=== PATIENT | female | born 1985 | race Caucasian/White ===

== ENCOUNTER 2017-02-16 01:26 | Emergency (ER) | payer OTHER ==
[2017-02-16 01:51] VITALS: BP 142/73; PULSE 75; TEMP 97.8; BMI 31.1
--- NOTE | 2017-02-16 01:56 | PDOC ---
History of Present Illness - General Chief Complaint: Pain, Acute Stated Complaint: LWR BACK FLANK PAIN Time Seen by Provider: 02/16/17 01:55 History Source: Patient Exam Limitations: No Limitations - History of Present Illness Travel History: No Initial Comments: 02/16/17 02:36 31-year-old female presents to the emergency department complaining of right- sided flank pain 4 days. Pain is described as 9/10 sharp intermittent discomfort radiating to the right groin with burning upon urination but denies urinary frequency/hesitancy/urgency/hematuria, fever, chills, nausea/vomiting, chest pain, shortness of breath, abdominal pains. Patient has no history of renal colic/pyelonephritis. LMP x2 weeks ago Timing/Duration: reports: intermittent Quality: reports: mild Abdominal Pain Onset Location: reports: flank (right) Pain Radiation: reports: groin (right), other Past History - Travel Traveled outside of the country in the last 30 days: No Close contact w/someone who was outside of country & ill: No - Past Medical History Allergies/Adverse Reactions: Allergies Allergy/AdvReac Type Severity Reaction Status Date / Time Penicillins Allergy Severe Difficulty Verified 02/16/17 01:46 Breathing Home Medications: Ambulatory Orders NK [No Known Home Medication] 06/13/15 Kidney Stones: Yes Suicide Attempt (Hx): No - Surgical History Abdominal Surgery: Yes Appendectomy: Yes Cholecystectomy: Yes - Immunization History Immunization Up to Date: Yes - Psycho/Social/Smoking Cessation Hx Anxiety: No Suicidal Ideation: No Smoking Status: No Smoking History: Never smoked Have you smoked in the past 12 months: No Number of Cigarettes Smoked Daily: 0 Hx Alcohol Use: No Drug/Substance Use Hx: No Substance Use Type: None Hx Substance Use Treatment: No Review of Systems - Review of Systems Able to Perform ROS?: Yes Comments:: 02/16/17 02:35 CONSTITUTIONAL: Absent: fever, chills, diaphoresis, generalized weakness, malaise, loss of appetite HEENT: Absent: rhinorrhea, nasal congestion, throat pain, throat swelling, difficulty swallowing, mouth swelling, ear pain, eye pain, visual Changes CARDIOVASCULAR: Absent: chest pain, loss of consciousness, palpitations, irregular heart rate, peripheral edema RESPIRATORY: Absent: cough, shortness of breath, dyspnea with exertion, orthopnea, wheezing, stridor, hemoptysis GASTROINTESTINAL: Absent: abdominal pain, abdominal distension, nausea, vomiting, diarrhea, constipation, melena, hematochezia GENITOURINARY: +right flank pain Absent: dysuria, frequency, urgency, hesitancy, hematuria, , genital pain MUSCULOSKELETAL: Absent: myalgia, arthralgia, joint swelling SKIN: Absent: rash, itching, pallor HEMATOLOGIC/IMMUNOLOGIC: Absent: easy bleeding, easy bruising, lymphadenopathy, frequent infections ENDOCRINE: Absent: unexplained weight gain, unexplained weight loss, heat intolerance, cold intolerance NEUROLOGIC: Absent: headache, focal weakness or paresthesias, dizziness, unsteady gait, seizure, mental status changes, bladder or bowel incontinence PSYCHIATRIC: Absent: anxiety, depression, suicidal or homicidal ideation, hallucinations. Is the patient limited Bhutanese proficient: No *Physical Exam - Vital Signs Last Vital Signs Temp Pulse Resp BP Pulse Ox 97.8 F 75 18 142/73 100 02/16/17 01:47 02/16/17 01:47 02/16/17 01:47 02/16/17 01:47 02/16/17 01:47 - Physical Exam Comments: 02/16/17 02:35 GENERAL: Well developed, well nourished. Awake and alert. No acute distress. HEENT: Normocephalic, atraumatic. PERRLA, EOMI. No conjunctival pallor. Sclera are non- icteric. Moist mucous membranes. Oropharynx is clear. NECK: Supple. Full ROM. No JVD. Carotid pulses 2+ and symmetric, without bruits. No thyromegaly. No lymphadenopathy. CARDIOVASCULAR: Regular rate and rhythm. No murmurs, rubs, or gallops. Distal pulses are 2+ and symmetric. PULMONARY: No evidence of respiratory distress. Lungs clear to auscultation bilaterally. No wheezing, rales or rhonchi. ABDOMINAL: Soft. Non-tender. Non-distended. No rebound or guarding. No organomegaly. Normoactive bowel sounds. MUSCULOSKELETAL +right CVAT Normal range of motion at all joints. No bony deformities or tenderness. EXTREMITIES: No cyanosis. No clubbing. No edema. No calf tenderness. SKIN: Warm and dry. Normal capillary refill. No rashes. No jaundice. NEUROLOGICAL: Alert, awake, appropriate. Cranial nerves 2-12 intact. No deficits to light touch and temperature in face, upper extremities and lower extremities. No motor deficits in the in face, upper extremities and lower extremities. Normoreflexic in the upper and lower extremities. Normal speech. Toes are down- going bilaterally. Gait is normal without ataxia. PSYCHIATRIC: Cooperative. Good eye contact. Appropriate mood and affect. Heart Score/ECG Review - History History: Slightly suspicious - Electrocardiogram EKG: Normal - Age Age: >/= 65 - Risk Factors Based on the list above the patient has:: No risk factors known - Troponin Troponin: </= normal limit - Score Heart Score - Total: 2 Progress Note - Progress Note Progress Note: Spiral CAT scans/renal colic Impression: Mild right hydronephrosis and perinephric inflammation, without obstructing stones seen which may indicate that the patient has recently passed a stone. Punctate intraparenchymal *DC/Admit/Observation/Transfer Diagnosis at time of Disposition: Renal colic on right side UTI (urinary tract infection) Qualifiers: Urinary tract infection type: acute cystitis Hematuria presence: without hematuria Qualified Code(s): N30.00 - Acute cystitis without hematuria - Discharge Dispostion Disposition: HOME Condition at time of disposition: Stable Admit: No - Referrals Referrals: Edwin Nugent MD [Primary Care Provider] - Dakota Horan MD., MD [Staff Physician] - - Patient Instructions Printed Discharge Instructions: DI for Kidney Stones, Urinary Tract Infection Additional Instructions: Rest Increase fluids Follow up with your physician and the Urologist listed on your discharge Tylenol/Motrin as needed for pain Return to the ER for severe/persistent/worsening symptoms Your renal CAT scan is only a preliminary report. It shows that you have mild right hydronephrosis and perinephric inflammation without an obstructing stone seen which may indicate that the you have recently passed a stone.
[2017-02-16 02:10] LABS: URINE APPEARANCE CLEAR; URINE BILIRUBIN NEGATIVE (NEGATIVE); URINE COLOR STRAW; URINE GLUCOSE (UA) NEGATIVE (NEGATIVE); URINE KETONE NEGATIVE (NEGATIVE); URINE NITRITE NEGATIVE (NEGATIVE); URINE UROBILINOGEN NEGATIVE E.U./dl (0.2-1.0)
[2017-02-16 02:11] LABS: URINE BLOOD 1+ (NEGATIVE); URINE LEUK ESTERASE 2+ (NEGATIVE); URINE PROTEIN 2+ (NEGATIVE)
[2017-02-16 02:20] LABS: URINE MUCUS RARE; URINE RBC 19 /hpf (0-3); URINE WBC 186 /hpf (3-5)
[2017-02-16] MEDS ORDERED: KETOROLAC TROMETHAMINE 60 MG/2 ML VIAL IM ONE (02:23)
[2017-02-16] MEDS ORDERED: KETOROLAC TROMETHAMINE 60 MG/2 ML VIAL ONE (02:39)
== END 2017-02-16 05:11 | disposition home or self-care (01) ==
LOC: JER 01:26
PROC: 3E0233Z Introduction of Anti-inflammatory into Muscle, Percutaneous Approach (ICD-10-PCS; principal; 2017-02-16)
DX: N23 Unspecified renal colic (principal); N30.00 Acute cystitis without hematuria
CPT/HCPCS: 74176; 81003; 81015; 84703; 96372; 99281-25

== ENCOUNTER 2017-02-17 19:53 | Emergency (ER) | payer OTHER ==
[2017-02-17 20:28] VITALS: BMI 30.2
[2017-02-17] MEDS ORDERED: morphine CARPU-JECT 4 MG/1 ML DISP.SYRIN IVPUSH ONE (20:42)
[2017-02-17] MEDS ORDERED: ONDANSETRON 4 MG/2 ML VIAL IVPB ONE (20:42)
[2017-02-17] MEDS ORDERED: SODIUM CHLORIDE 1,000 ML IV STA ×2 (20:42→23:34)
--- NOTE | 2017-02-17 21:03 | PDOC ---
History of Present Illness - General Chief Complaint: SIRS, Suspected/Possible Stated Complaint: UTI/KIDNEY PAIN Time Seen by Provider: 02/17/17 20:35 History Source: Patient Exam Limitations: No Limitations - History of Present Illness Initial Comments: 02/17/17 21:01 31yo Female patient presents to ED c/o h/a, fever, vomiting, diarrhea, chills, and nausea which has been ongoing since earlier today. Patient states she was seen yesterday and diagnosed with Renal Colic, prescribed Bactrim and Toradol po. Patient reports fever 103.0 w/ back pain. Denies any other complaints at this time. Timing/Duration: getting worse, changing over time Severity: mild Modifying Factors: improves with: medication Associated Symptoms: reports: fever/chills, loss of appetite, nausea/vomiting. denies: denies symptoms, chest pain, cough, diaphoresis, headaches, malaise, rash, seizure, shortness of breath, syncope, weakness, other Past History - Travel Traveled outside of the country in the last 30 days: No Close contact w/someone who was outside of country & ill: No - Past Medical History Allergies/Adverse Reactions: Allergies Allergy/AdvReac Type Severity Reaction Status Date / Time Penicillins Allergy Severe Difficulty Verified 02/17/17 20:20 Breathing Home Medications: Ambulatory Orders Ketorolac Tromethamine [Toradol] 10 mg PO TID #15 tablet 02/16/17 Sulfamethoxazole/Trimethoprim [Bactrim Ds -] 1 tab PO BID #14 tablet 02/16/17 Cephalexin Monohydrate [Keflex -] 500 mg PO Q8H #30 capsule 02/18/17 Ondansetron [Zofran Odt -] 4 mg SL Q6H PRN #20 od.tablet 02/18/17 Oxycodone HCl/Acetaminophen [Percocet 10-325 mg Tablet] 1 each PO Q6H PRN #24 tablet MDD 4 tabs 02/18/17 Kidney Stones: Yes Suicide Attempt (Hx): No - Surgical History Abdominal Surgery: Yes Appendectomy: Yes Cholecystectomy: Yes - Immunization History Immunization Up to Date: Yes - Psycho/Social/Smoking Cessation Hx Anxiety: No Suicidal Ideation: No Smoking Status: No Smoking History: Never smoked Have you smoked in the past 12 months: No Number of Cigarettes Smoked Daily: 0 Information on smoking cessation initiated: No Hx Alcohol Use: No Drug/Substance Use Hx: No Substance Use Type: None Hx Substance Use Treatment: No Review of Systems - Review of Systems Able to Perform ROS?: Yes Is the patient limited Tristanian proficient: No Constitutional: Yes: Chills, Fever, Weakness Respiratory: No: Cough, Shortness of Breath, Stridor, Wheezing Cardiac (ROS): No: Chest Pain, Edema, Lightheadedness, Palpitations, Syncope, Chest Tightness ABD/GI: Yes: Diarrhea, Nausea. No: Constipated, Poor Appetite, Poor Fluid Intake, Rectal Bleeding, Vomiting, Indigestion, Abdominal cramping : No: Burning, Dysuria, Flank Pain, Hematuria Musculoskeletal: Yes: Back Pain Integumentary: No: Bruising, Erythema, Pruritus, Rash Neurological: Yes: Headache, Dizziness. No: Numbness, Seizure, Tremors, Weakness, Unsteady Gait, Ataxia All Other Systems: Reviewed and Negative *Physical Exam - Vital Signs Last Vital Signs Temp Pulse Resp BP Pulse Ox 102.9 F H 130 H 20 127/89 98 02/17/17 20:20 02/17/17 20:20 02/17/17 20:20 02/17/17 20:20 02/17/17 20:20 - Physical Exam General Appearance: Yes: Nourished, Appropriately Dressed, Mild Distress HEENT: positive: EOMI, JEANETTE, Normal ENT Inspection, Normal Voice, Symmetrical, TMs Normal, Pharynx Normal. negative: Pharyngeal Erythema, Tonsillar Exudate, Tonsillar Erythema, Nasal Congestion, Rhinorrhea, Sinus Tenderness, TM Bulging, TM Dull, TM Erythema Neck: positive: Trachea midline, Supple. negative: Lymphadenopathy (R), Lymphadenopathy (L) Respiratory/Chest: positive: Lungs Clear, Normal Breath Sounds. negative: Respiratory Distress, Accessory Muscle Use, Labored Respiration, Stridor, Wheezing Cardiovascular: positive: Regular Rhythm, Regular Rate Gastrointestinal/Abdominal: positive: Normal Bowel Sounds, Soft. negative: Distended, Guarding, Rebound, Tenderness Musculoskeletal: positive: Normal Inspection. negative: CVA Tenderness Extremity: positive: Normal Capillary Refill, Normal Inspection, Normal Range of Motion. negative: Pedal Edema, Swelling Integumentary: positive: Normal Color, Dry, Warm. negative: Pale, Cold, Clammy , Hives, Rash, Swelling Neurologic: positive: housing manager II-XII NML intact, Fully Oriented, Alert, Normal Mood/ Affect, Normal Response, Motor Strength 03/07 ED Treatment Course - LABORATORY CBC & Chemistry Diagram: 02/17/17 21:10 02/17/17 21:10 *DC/Admit/Observation/Transfer Diagnosis at time of Disposition: Pyelonephritis - Discharge Dispostion Disposition: HOME Condition at time of disposition: Improved Admit: No - Prescriptions Prescriptions: Cephalexin Monohydrate [Keflex -] 500 mg PO Q8H #30 capsule Oxycodone HCl/Acetaminophen [Percocet 10-325 mg Tablet] 1 each PO Q6H PRN #24 tablet MDD 4 tabs PRN Reason: Severe Pain Ondansetron [Zofran Odt -] 4 mg SL Q6H PRN #20 od.tablet PRN Reason: Nausea - Patient Instructions Printed Discharge Instructions: DI for Kidney Infection Additional Instructions: FOLLOW UP WITH DR. ANGELO THIS WEEK. CALL TO SCHEDULE APPOINTMENT. TAKE MEDICATIONS PRESCRIBED. IF SYMPTOMS WORSEN DISCUSSED RETURN FOR FURTHER EVALUATION. DO NOT DRIVE, DRINK ALCOHOL, OR OPERATE HEAVY MACHINERY WHILE TAKING PERCOCET. DRINK PLENTY WATER AND GET REST. KEFLEX EVERY 8 HOURS FOR INFECTION- ANTIBIOTICS ZOFRAN EVERY 6 HOURS NEEDED FOR NAUSEA PERCOCET EVERY 6 HOURS NEEDED FOR PAIN. DO NOT TAKE EXTRA STRENGTH TYLENOL WITH THIS MEDICATION. YOU MAY USE 1 TABLET OF REGULAR STRENGTH TYLENOL 325 MG WITH EACH DOSE. STOP BACTRIM. YOU MAY CONTINUE TO USE TORADOL NEEDED FOR MILD PAIN. Print Language: BRITISH - Post Discharge Activity Work/School Note: Back to Work
[2017-02-17] MEDS ORDERED: morphine CARPU-JECT 4 MG/1 ML DISP.SYRIN ONE (21:06)
[2017-02-17] MEDS ORDERED: ONDANSETRON 4 MG/2 ML VIAL ONE (21:06)
[2017-02-17] MEDS ORDERED: ACETAMINOPHEN 1000 MG/100 ML VIAL (NON FORMULARY) IVPB ONE (21:49)
[2017-02-17] MEDS ORDERED: ACETAMINOPHEN INJECTION 100 ML IVPB ONE (21:50)
[2017-02-17 21:54] LABS: MCH 28.6 pg (25.7-33.7); MCHC 33.3 g/dl (32.0-36.0); MEAN CELL VOLUME 85.6 fl (80-96); MEAN PLT VOLUME 9.3 fl (7.5-11.1); PLATELET COUNT 171 K/MM3 (134-434); WHITE BLOOD COUNT 9.4 K/mm3 (4.0-10.0)
[2017-02-17 21:55] LABS: BASOPHIL 0.1 % (0-2.0); NEUTROPHILS 86.5 % (42.8-82.8)
[2017-02-17 22:02] LABS: ALBUMIN 3.4 g/dl (3.4-5.0); AMYLASE 35 U/L (25-115); ANION GAP 12 (8-16); BILIRUBIN,TOTAL 0.4 mg/dL (0.2-1.0); CALCIUM 7.7 mg/dL (8.5-10.1); CO2 28 mmol/L (21-32); COCKROFT - GAULT 114.5885; CREATININE 0.8 mg/dL (0.55-1.02); GLUCOSE,RANDOM 161 mg/dL (74-106); SGOT/AST 89 U/L (15-37); SGPT/ALT 97 U/L (12-78); TOT PROT 7.5 g/dl (6.4-8.2)
[2017-02-17 22:03] LABS: ALK PHOS 160 U/L (45-117)
[2017-02-17 23:16] LABS: URINE APPEARANCE CLEAR; URINE COLOR YELLOW; URINE GLUCOSE (UA) NEGATIVE (NEGATIVE)
[2017-02-17 23:17] LABS: URINE BILIRUBIN NEGATIVE (NEGATIVE); URINE BLOOD 2+ (NEGATIVE); URINE KETONE 2+ (NEGATIVE); URINE LEUK ESTERASE 1+ (NEGATIVE); URINE NITRITE NEGATIVE (NEGATIVE); URINE PROTEIN 2+ (NEGATIVE); URINE RBC 164 /hpf (0-3); URINE UROBILINOGEN 2.0 E.U/dl E.U./dl (0.2-1.0)
[2017-02-17 23:18] LABS: URINE BACTERIA MODERATE /hpf (NONE SEEN); URINE MUCUS FEW; URINE WBC 16 /hpf (3-5)
[2017-02-17] MEDS ORDERED: CEFTRIAXONE 1 GM in DEXTROSE 5%-WATER - 50 ML IVPB ONE (23:34)
[2017-02-17] MEDS ORDERED: cefTRIAXone SODIUM 1 GM VIAL ONE (23:56)
[2017-02-18] MEDS ORDERED: SODIUM CHLORIDE 1,000 ML IV STA (01:44)
[2017-02-18] MEDS ORDERED: METOCLOPRAMIDE HCL INJECTION 10 MG/2 ML VIAL IVPB ONE (01:44)
[2017-02-18] MEDS ORDERED: METOCLOPRAMIDE HCL INJECTION 10 MG/2 ML VIAL ONE (01:55)
[2017-02-18 02:35] VITALS: TEMP 98.4
[2017-02-18 03:53] VITALS: BP 127/81; PULSE 93
== END 2017-02-18 03:54 | disposition home or self-care (01) ==
LOC: JER 19:53
PROC: 3E0337Z Introduction of Electrolytic and Water Balance Substance into Peripheral Vein, Percutaneous Approach (ICD-10-PCS; principal; 2017-02-17)
PROC: 3E03329 Introduction of Other Anti-infective into Peripheral Vein, Percutaneous Approach (ICD-10-PCS; 2017-02-17)
PROC: 3E033NZ Introduction of Analgesics, Hypnotics, Sedatives into Peripheral Vein, Percutaneous Approach (ICD-10-PCS; 2017-02-17)
PROC: 3E033GC Introduction of Other Therapeutic Substance into Peripheral Vein, Percutaneous Approach (ICD-10-PCS; 2017-02-17)
DX: N10 Acute pyelonephritis (principal)
CPT/HCPCS: 36415; 74177-TC; 80053; 81003; 81015; 82150; 83605; 83690; 84703; 85025; 87086; 87804; 99283-25

== ENCOUNTER 2017-03-05 12:19 | Day surgery (SDC) | payer OTHER ==
[2017-03-04 12:55] VITALS: BMI 32.1
[2017-03-05] MEDS ORDERED: PROPOFOL 20 ML ONE (13:39)
[2017-03-05] MEDS ORDERED: MIDAZOLAM HCL 2 MG/2 ML SINGLE DOSE VIAL ONE (13:39)
[2017-03-05] MEDS ORDERED: SUCCINYLCHOLINE CHLORIDE 200 MG/10 ML VIAL ONE (13:39)
[2017-03-05] MEDS ORDERED: LEVOFLOXACIN 500 MG PREMIX BAG IVPB ONE (14:11)
[2017-03-05] MEDS ORDERED: IOHEXOL 300 MG/ML INFUS..BTL IV ONE (14:30)
--- NOTE | 2017-03-05 14:54 | OP ---
Operative Note - Note: Operative Date: 03/05/17 Pre-Operative Diagnosis: Right hydronephrosis Operation: Cysto retro, Ureteral dilatation and stent placement Post-Operative Diagnosis: Same as Pre-op Anesthesia: General Drains & Tubes with Location: 22 F 6mm stent right Operative Report Dictated: Yes
[2017-03-05] MEDS ORDERED: ONDANSETRON 4 MG/2 ML VIAL IVPUSH PRN (14:57)
[2017-03-05] MEDS ORDERED: oxyCODONE HCL 5 MG TABLET PO PRN (14:57)
[2017-03-05] MEDS ORDERED: LACTATED RINGERS SOLUTION 1,000 ML IV SCH (15:00)
[2017-03-05 16:17] VITALS: TEMP 98.5
[2017-03-05] MEDS ORDERED: oxyCODONE HCL 5 MG TABLET ONE (16:17)
[2017-03-05 17:15] VITALS: BP 127/84; PULSE 78
--- NOTE | 2017-03-06 16:51 | OP ---
DATE OF OPERATION: 03/05/2017 SURGEON: Devora Brewer MD ANESTHESIA: General. PREOPERATIVE DIAGNOSES: Right hydronephrosis, obstructive uropathy. POSTOPERATIVE DIAGNOSES: Right hydronephrosis, obstructive uropathy. PROCEDURE: Cystoscopy, right retrograde ureteral dilatation and stent placement. FINDINGS: bladder found to be markedly inflamed with areas of cystitic changes. Right ureteral orifice was found to be quite edematous. Right retrograde showed hydronephrosis right to the point of right UV junction. DESCRIPTION OF PROCEDURE: Patient in lithotomy position under anesthesia was prepped and draped in the usual manner. Using 22 scope, cystoscopy performed with considerable difficulty. Right ureter was catheterized. Access catheter was used. Retrograde performed, and findings were noted above. Then, a stent was placed without difficulty. Patient tolerated the procedure well, left the operating room in satisfactory condition. DEVORA BREWER M.D. [id number]
== END 2017-03-05 17:05 | disposition home or self-care (01) ==
LOC: JASU-SURG 12:19
PROVIDERS: ATTEND Urology
PROC: 0T768DZ Dilation of Right Ureter with Intraluminal Device, Via Natural or Artificial Opening Endoscopic (ICD-10-PCS; principal; 2017-03-05 13:30)
PROC: 0T768DZ Dilation of Right Ureter with Intraluminal Device, Via Natural or Artificial Opening Endoscopic (ICD-10-PCS; 2017-03-05 13:30)
DX: N13.30 Unspecified hydronephrosis (principal)
CPT/HCPCS: 76000-TC; 84703; 94760

== ENCOUNTER 2018-03-25 20:44 | Emergency (ER) | payer OTHER ==
--- NOTE | 2018-03-25 20:56 | PDOC ---
Rapid Medical Evaluation Chief Complaint: Chest Pain Time Seen by Provider: 03/25/18 20:46 Medical Evaluation: Allergies Allergy/AdvReac Type Severity Reaction Status Date / Time Penicillins Allergy Severe Difficulty Verified 10/11/17 19:29 Breathing 03/25/18 20:46 sent by Kenroy RUGGIERO urgent for midsternal chest pain and palpitations, SOb, dizziness x 2 days. History of " pre diabetes" currently on metformin PE: Patient alert ox3 A:chest pain P; cbc cmp mg cardiac d-dimer chest xray EKG patient to the ER for further management of care.
[2018-03-25 21:03] VITALS: BMI 31.9
[2018-03-25 21:46] LABS: BASO % 0.6 % (0-2.0); EOS % 2.3 % (0-4.5); HEMATOCRIT 39.7 % (32.4-45.2); HEMOGLOBIN 13.1 GM/dL (10.7-15.3); LYMPH % 29.2 % (8-40); MCH 28.8 pg (25.7-33.7); MEAN CELL VOLUME 87.3 fl (80-96); MEAN PLT VOLUME 9.5 fl (7.5-11.1); MONO % 4.8 % (3.8-10.2); NEUT % 63.1 % (42.8-82.8); PLATELET COUNT 239 K/MM3 (134-434); RBC 4.54 M/mm3 (3.60-5.2); RDW 14.1 % (11.6-15.6); WHITE BLOOD COUNT 8.7 K/mm3 (4.0-10.0)
[2018-03-25 21:54] LABS: INR 0.97 (0.82-1.09)
--- NOTE | 2018-03-25 22:11 | PDOC ---
History of Present Illness - General Chief Complaint: Chest Pain Stated Complaint: S.O.B/ CHEST PAIN Time Seen by Provider: 03/25/18 20:46 - History of Present Illness Initial Comments: Patient is a 33 year old female, with a significant past medical history of PCOS , renal stones, who presents to the emergency department complaining of 4 days of intermittent chest tightness, dizziness and fatigue. Pt states that 4 days ago she noted the onset of substernal chest tightness with no radiation, worsened by talking and exercise and relieved by rest, which has been more persistent over the last two days. Pt also states she when she has this chest pain, she also endorses a frontal TERESA, nausea and SOB. She also endorses persistent decreased exercise tolerance, feeling SOB after walking down the [place]. She also endorses BL flank "burning" , similar to prior R flank pain when she had a renal stone. Pt denies any hx of trauma, rashes to anterior chest, hx of cardiac conditions. No cardiac hx. Pt seen in ED two years ago for similar symptoms, all work-up was negative. No recent travel, immobilization or sick contacts. The patient denies Denies fever, chills, vomiting, diarrhea and constipation. Denies dysuria, frequency, urgency and hematuria. Allergies: None Past surgical history: GB removal, C-sections x2 Social History: Denies all toxic habits PMD: None currently 03/25/18 22:10 Past History - Past Medical History Allergies/Adverse Reactions: Allergies Allergy/AdvReac Type Severity Reaction Status Date / Time Penicillins Allergy Severe Difficulty Verified 03/25/18 21:03 Breathing Home Medications: Ambulatory Orders Ibuprofen [Motrin -] 600 mg PO QID #28 tablet 10/11/17 Anemia: No Asthma: No Cancer: No Cardiac Disorders: No CVA: No COPD: No CHF: No Dementia: No Diabetes: Yes (gestational) GI Disorders: No Disorders: Yes (frequent UTI) HTN: No Hypercholesterolemia: No Kidney Stones: Yes Liver Disease: No Seizures: No Thyroid Disease: No - Surgical History Abdominal Surgery: Yes Appendectomy: Yes Cholecystectomy: Yes - Immunization History Immunization Up to Date: Yes - Suicide/Smoking/Psychosocial Hx Smoking Status: No Smoking History: Never smoked Have you smoked in the past 12 months: No Number of Cigarettes Smoked Daily: 0 Information on smoking cessation initiated: No Hx Alcohol Use: No Drug/Substance Use Hx: No Substance Use Type: None Hx Substance Use Treatment: No Review of Systems - Review of Systems Comments:: GENERAL/CONSTITUTIONAL: +weakness, No fever or chills. HEAD, EYES, EARS, NOSE AND THROAT: No change in vision. No ear pain or discharge. No sore throat. CARDIOVASCULAR: +Chest tightness, sob, palpitations RESPIRATORY: No cough, wheezing, or hemoptysis. GASTROINTESTINAL: +nausea. No vomiting, diarrhea or constipation. GENITOURINARY: No dysuria, frequency, or change in urination. MUSCULOSKELETAL: + BL back pain, No joint or muscle swelling or pain. No neck SKIN: No rash NEUROLOGIC: +TERESA; No vertigo, loss of consciousness, or change in strength/ sensation. ENDOCRINE: No increased thirst. No abnormal weight change HEMATOLOGIC/LYMPHATIC: No anemia, easy bleeding, or history of blood clots. ALLERGIC/IMMUNOLOGIC: No hives or skin allergy. 03/25/18 22:10 *Physical Exam - Vital Signs Last Vital Signs Temp Pulse Resp BP Pulse Ox 98.2 F 93 H 16 153/111 100 03/25/18 20:56 03/25/18 20:56 03/25/18 20:56 03/25/18 20:56 03/25/18 20:56 - Physical Exam Comments: GENERAL: Awake, alert, and fully oriented, in no acute distress HEAD: No signs of trauma, normocephalic, atraumatic EYES: PERRLA, EOMI, sclera anicteric, conjunctiva clear ENT: Auricles normal inspection, hearing grossly normal, nares patent, oropharynx clear without exudates. Moist mucosa NECK: Normal ROM, supple, no lymphadenopathy, JVD, or masses LUNGS: No distress, speaks full sentences. Decreased air entry at bases. HEART: Regular rate and rhythm, normal S1 and S2, no murmurs, rubs or gallops, peripheral pulses normal and equal bilaterally. No anterior chest pain on palpation. ABDOMEN: globular, Soft, nontender, normoactive bowel sounds. No guarding, no rebound. No masses. R-sided CVA tenderness. EXTREMITIES : Normal inspection, Normal range of motion, no edema. No clubbing or cyanosis. NEUROLOGICAL: Cranial nerves II through XII grossly intact. Normal speech, normal gait, no focal sensorimotor deficits SKIN: Warm, Dry, normal turgor, no rashes or lesions noted 03/25/18 22:11 ED Treatment Course - LABORATORY CBC & Chemistry Diagram: 03/25/18 21:20 03/26/18 02:22 - ADDITIONAL ORDERS Additional order review: Laboratory Results 03/25/18 21:22 PT with INR 11.00 INR 0.97 Medical Decision Making - Medical Decision Making Patient is a 33 year old female, with a significant past medical history of PCOS , renal stones, who presents to the emergency department complaining of 4 days of intermittent chest tightness, dizziness and fatigue. DDX ACS, PE, pleurisy, GERD, costochondritis, PUD, esophageal spasm, anxiety attack. Plan: -CBC, CMP, trops, coags, lactate, urine-preg - CXR, EKG - motrin for TERESA - UA 03/25/18 22:21 DISCHARGE The patient has gotten significant relief of symptoms with ED medications. Workup is not concerning for emergency-level pathology at this time. The patient is appropriate for discharge with close outpatient follow up. They are comfortable with this plan and will follow up with their PCP in 1-3 days. Return precautions are discussed and they will come back to the ER if necessary. All labs, ekg and CXR normal. pt provided referrals for PCP and Cardiology f/u with Dr. Stewart and his group 03/26/18 03:06 *DC/Admit/Observation/Transfer Diagnosis at time of Disposition: Anxiety - Discharge Dispostion Disposition: HOME Condition at time of disposition: Good Decision to Admit order: No - Referrals Referrals: Albaro Stewart MD [Staff Physician] - New Alexander MD [Staff Physician] - - Patient Instructions Printed Discharge Instructions: DI for Atypical Chest Pain Additional Instructions: During your visit to the [facility] ED, you were evaluated for chest tightness and shortness of breath. You received standard lab tests, EKG and chest xray, all of which were normal. You are being discharged home with referral for a primary care provider and are also being provided a referral to see our cardiology, Dr. Stewart. Please take tylenol 650mg every four hours if you experience pain in your chest wall. You are being provided a referral with the resident clinic with Dr. Alexander for establishment of a primary care provider. Please call the number provided in this packet to schedule an appointment within one week. You are being provided a referral for follow-up with Dr. Stewart, our senior java architect for further evaluation and management of your cardiac health. Please call the number provided in this packet to schedule an appointment within one week. If you experience any of the following symptoms, please return to the ED: - Persistent fevers/chills >3 days - Worsening chest pain/tightness, shortness of breath or decreased exercise tolerance - Pain/numbness/tightness in your left arm, neck jaw or back - Changes in vision, numbness/weakness in any extremities, or persistent dizziness/loss of consciousness - Any new or concerning symptoms - Post Discharge Activity
--- NOTE | 2018-03-25 22:23 | PDOC ---
Attending Attestation - HPI HPI: 03/25/18 22:37 The patient is a 33 year old female, with a significant past medical history of PCOS, renal stones, and GERD, who presents to the emergency department with, 4 days of intermittent chest tightness with associated dizziness, nausea, vomiting , and SOB. She describes her chest pain as substernal. She reports a similar episode 2 years ago where she had a full cardiac workup with no pertinent positive findings. The patient reports associated increased fatigue, she reports being unable to walk minimal distances without becoming SOB. She reports 2 days of flank pain which she describes as burning. She denies recent fevers, chills, or headache. She denies recent diarrhea or constipation. She denies recent dysuria, frequency, urgency or hematuria. Allergies: Penicillins. Past surgical history: GB removal, C-sections x2. Social history: Nonsmoker. Denies EtOH use and recreational drug use. <Gurpreet Venegas - Last Filed: 03/25/18 22:37> - Resident Resident Name: Naldo Joaquin - ED Attending Attestation I have performed the following: I have examined & evaluated the patient, The case was reviewed & discussed with the resident, I agree w/resident's findings & plan, Exceptions are as noted - Physicial Exam PE: 03/26/18 19:20 *Physical Exam General Appearance: Yes: Appropriately Dressed. No: Apparent Distress, Intoxicated HEENT: positive: EOMI, JEANETTE, Normal ENT Inspection, Normal Voice, TMs Normal, Pharynx Normal. negative: Pale Conjunctivae, Photophobia, Scleral Icterus (R), Scleral Icterus (L) Neck: positive: Trachea midline, Normal Thyroid, Supple. negative: Tender, Rigid, Carotid bruit, Stridor, Lymphadenopathy (R), Lymphadenopathy (L), Thyromegaly Respiratory/Chest: positive: Lungs Clear, Normal Breath Sounds. negative: Chest Tender, Respiratory Distress, Accessory Muscle Use, Labored Respiration, RES, Crackles, Rales, Rhonchi, Stridor, Wheezing, Dullness Cardiovascular: positive: Regular Rhythm, Regular Rate, S1, S2. negative: Edema , JVD, Murmur, Bradycardia, Tachycardia Vascular Pulses: Dorsalis-Pedis (R): 2+, Doralis-Pedis (L): 2+ Gastrointestinal/Abdominal: positive: Normal Bowel Sounds, Flat, Soft. negative : Tender, Organomegaly, Pulsatile Mass, Increased Bowel Sounds, Decreased BS, Distended, Guarding, Rebound, Hernia, Hepatomegaly, Spleenomegaly Lymphatic: negative: Adenopathy, Tenderness Musculoskeletal: positive: Normal Inspection. negative: CVA Tenderness, Decreased Range of Motion Extremity: positive: Normal Capillary Refill, Normal Inspection, Normal Range of Motion, Pelvis Stable. negative: Tender, Pedal Edema, Swelling, Erythema Integumentary: positive: Normal Color, Dry, Warm. 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 negative: EOM Palsy, Facial Droop, Sensory Deficit - Medical Decision Making 03/26/18 19:20 Pt treated and releases <Samir Neves - Last Filed: 03/26/18 19:20> Attestations - Attestations 03/25/18 22:38 Documentation prepared by Gurpreet Venegas, acting as medical housekeeper for Samir Neves DO. <Gurpreet Venegas - Last Filed: 03/25/18 22:37>
[2018-03-25] MEDS ORDERED: ACETAMINOPHEN 325 MG TABLET (FP) ONE (23:05)
[2018-03-25] MEDS: ACETAMINOPHEN 325 MG TABLET (FP) PO ONE ×2 (23:14→23:15)
[2018-03-26 02:12] LABS: ALBUMIN 3.6 g/dl (3.5-5.0); ALK PHOS 115 U/L (32-92); ANION GAP 6 (8-16); BILIRUBIN,TOTAL < 0.5 mg/dl (0.2-1.0); BLOOD UREA NITROGEN 9 mg/dl (7-18); CALCIUM 8.3 mg/dl (8.4-10.2); CHLORIDE 105 mmol/L (98-107); CO2 24 mmol/L (22-28); CREATININE < 0.8 mg/dl (0.6-1.3); GLUCOSE,RANDOM 132 mg/dl (74-106); POTASSIUM 3.4 mmol/L (3.5-5.1); SGOT/AST 30 U/L (10-42); SGPT/ALT 29 U/L (10-40); SODIUM 135 mmol/L (136-145); TOT PROT 6.6 g/dl (6.4-8.3)
[2018-03-26 02:32] VITALS: BP 116/86; PULSE 83; TEMP 98.5
[2018-03-26 02:58] LABS: ALBUMIN 3.3 g/dl (3.4-5.0); ANION GAP 7 (8-16); BILIRUBIN,TOTAL 0.2 mg/dL (0.2-1.0); CALCIUM 7.7 mg/dL (8.5-10.1); CHLORIDE 108 mmol/L (98-107); CO2 27 mmol/L (21-32); CREATININE 0.6 mg/dL (0.55-1.02); GLUCOSE,RANDOM 116 mg/dL (74-106); POTASSIUM 3.8 mmol/L (3.5-5.1); SGOT/AST 28 U/L (15-37); SGPT/ALT 35 U/L (12-78); SODIUM 142 mmol/L (136-145); TOT PROT 6.9 g/dl (6.4-8.2)
[2018-03-26 03:01] LABS: ALK PHOS 139 U/L (45-117); BLOOD UREA NITROGEN 8 mg/dL (7-18)
--- NOTE | 2018-03-26 16:31 | EKG ---
Test Reason : Blood Pressure : / mmHG Vent. Rate : 090 BPM Atrial Rate : 090 BPM P-R Int : 150 ms QRS Dur : 092 ms QT Int : 388 ms P-R-T Axes : 025 038 045 degrees QTc Int : 474 ms NORMAL SINUS RHYTHM POSSIBLE LEFT ATRIAL ENLARGEMENT NONSPECIFIC T WAVE ABNORMALITY PROLONGED QT ABNORMAL ECG WHEN COMPARED WITH ECG OF 13-JUN-2015 21:37, NO SIGNIFICANT CHANGE WAS FOUND Confirmed by TORI RUGGIERO, ASHLEY ([id number]) on 03/26/2018 4:31:14 PM Referred By: VALERIA Confirmed By:ASHLEY VALLE MD
== END 2018-03-26 03:39 | disposition home or self-care (01) ==
LOC: JER 20:44
DX: F41.9 Anxiety disorder, unspecified (principal); E28.2 Polycystic ovarian syndrome; Z87.442 Personal history of urinary calculi
CPT/HCPCS: 36415; 71046-TC-FY; 80053; 82550; 84484; 84703; 85025; 85379; 85610; 93005; 93010; 99283-25

== ENCOUNTER 2021-07-19 16:32 | Observation (INO) | payer OTHER ==
[2021-07-19 16:54] VITALS: BMI 29.2
[2021-07-19] MEDS ORDERED: ASPIRIN 325 MG TABLET PO ONE (17:12)
[2021-07-19] MEDS ORDERED: ASPIRIN 325 MG ENTERIC COATED TABLET (FP) ONE (17:32)
[2021-07-19 18:08] LABS: BASO % 0.6 % (0-2.0); EOS % 3.3 % (0-4.5); HEMATOCRIT 33.7 % (32.4-45.2); HEMOGLOBIN 11.2 GM/dL (10.7-15.3); LYMPH % 25.1 % (8-40); MEAN CELL VOLUME 84.8 fl (80-96); MEAN PLT VOLUME 8.8 fl (7.5-11.1); MONO % 5.8 % (3.8-10.2); NEUT % 65.2 % (42.8-82.8); PLATELET COUNT 255 10^3/uL (134-434); RBC 3.98 M/mm3 (3.60-5.2); WHITE BLOOD COUNT 8.2 K/mm3 (4.0-10.0)
[2021-07-19 18:57] LABS: CHLORIDE 107 mmol/L (98-107); SODIUM 138 mmol/L (136-145)
[2021-07-19 18:59] LABS: CALCIUM 8.6 mg/dL (8.5-10.1)
[2021-07-19 19:00] LABS: ALBUMIN 3.6 g/dl (3.4-5.0); ANION GAP 5 MMOL/L (8-16); CO2 26 mmol/L (21-32); GLUCOSE,RANDOM 170 mg/dL (74-106)
[2021-07-19 19:04] LABS: BLOOD UREA NITROGEN 7.6 mg/dL (7-18); CREATININE 0.7 mg/dL (0.55-1.3); SGOT/AST 15 U/L (15-37); SGPT/ALT 21 U/L (13-61)
[2021-07-19 19:05] LABS: BILIRUBIN,TOTAL 0.2 mg/dL (0.2-1); TOT PROT 7.5 g/dl (6.4-8.2)
[2021-07-19 19:06] LABS: ALK PHOS 90 U/L (45-117)
[2021-07-19 19:07] LABS: N-TERMINAL BNP 27.4 pg/ml (5-125)
[2021-07-19] MEDS ORDERED: KETOROLAC TROMETHAMINE 30 MG/1 ML VIAL IVPUSH ONE (19:27)
[2021-07-19] MEDS ORDERED: KETOROLAC TROMETHAMINE 30 MG/1 ML VIAL ONE (19:41)
[2021-07-19] MEDS ORDERED: morphine CARPU-JECT 2 MG/1 ML DISP.SYRIN IVPUSH ONE (20:38)
[2021-07-19] MEDS ORDERED: MORPHINE SULFATE 2 MG/ML VIAL ONE (20:45)
[2021-07-19] MEDS ORDERED: metFORMIN HCL 500 MG TABLET (FP) PO ONE (20:52)
[2021-07-19] MEDS ORDERED: metFORMIN HCL 500 MG TABLET (FP) ONE (21:41)
[2021-07-19 21:48] LABS: CHLORIDE 108 mmol/L (98-107); SODIUM 140 mmol/L (136-145)
[2021-07-19 21:50] LABS: ALBUMIN 3.6 g/dl (3.4-5.0); ANION GAP 6 MMOL/L (8-16); BLOOD UREA NITROGEN 6.6 mg/dL (7-18); CALCIUM 8.3 mg/dL (8.5-10.1); CO2 26 mmol/L (21-32); GLUCOSE,RANDOM 99 mg/dL (74-106)
[2021-07-19 21:54] LABS: CREATININE 0.5 mg/dL (0.55-1.3); SGOT/AST 18 U/L (15-37); SGPT/ALT 21 U/L (13-61)
[2021-07-19 21:55] LABS: BILIRUBIN,TOTAL 0.3 mg/dL (0.2-1); TOT PROT 7.3 g/dl (6.4-8.2)
[2021-07-19 21:56] LABS: ALK PHOS 83 U/L (45-117)
[2021-07-19 22:03] LABS: N-TERMINAL BNP 23.6 pg/ml (5-125)
[2021-07-20] MEDS ORDERED: metFORMIN HCL 500 MG TABLET (FP) PO SCH (07:00)
[2021-07-20] MEDS ORDERED: metFORMIN HCL 500 MG TABLET (FP) ONE (08:45)
[2021-07-20] MEDS ORDERED: LISINOPRIL 5 MG TABLET ONE (08:46)
[2021-07-20 09:30] LABS: CHOLESTEROL 178 mg/dL (50-200); HDL CHOLESTEROL 37 mg/dL (40-60); LDL CHOLESTEROL (ONLY DFH) 103 mg/dl (5-100); TRIGLYCERIDES 188 mg/dL (0-150)
[2021-07-20] MEDS ORDERED: LISINOPRIL 10 MG TABLET PO SCH (10:00)
[2021-07-20] MEDS ORDERED: ASPIRIN 81 MG CHEWABLE TABLETS PO SCH (11:15)
[2021-07-20 12:01] VITALS: BP 135/87; PULSE 81; TEMP 98.5
[2021-07-20] MEDS ORDERED: ATORVASTATIN CA 10 MG TABLET (FP) PO SCH (22:00)
== END 2021-07-20 15:15 | disposition home or self-care (01) ==
LOC: JER 16:32 → JERBED 19:26
PROVIDERS: ADMIT Internal Medicine; ATTEND Internal Medicine
PROC: 3E0333Z Introduction of Anti-inflammatory into Peripheral Vein, Percutaneous Approach (ICD-10-PCS; principal; 2021-07-19)
PROC: 3E033NZ Introduction of Analgesics, Hypnotics, Sedatives into Peripheral Vein, Percutaneous Approach (ICD-10-PCS; 2021-07-19)
DX: R07.89 Other chest pain (principal); E11.9 Type 2 diabetes mellitus without complications; E78.5 Hyperlipidemia, unspecified; Z79.84 Long term (current) use of oral hypoglycemic drugs; Z88.0 Allergy status to penicillin
CPT/HCPCS: 36415; 71046-TC-FY; 80053; 80061; 82550; 83036; 83880; 84443; 84484; 85025; 85379; 93005; 93010; 93306-TC; 93351; 99285-25; C9803; G0378; U0003; U0005